=== PATIENT | female | born 1975 | race Caucasian/White ===

== ENCOUNTER 2017-07-21 12:02 | Emergency (ER) | payer BC, MEDICAID ==
[~2017-07-21] VITALS: Ht 152.4 cm; Wt 89.5 kg
[~2017-07-21 12:02] MED LIST: NORE1TAB6 PO
[2017-07-21] MEDS ORDERED: SUMAtriptan 5 mg Nasal Spray NS ONE (13:00)
[2017-07-21] MEDS ORDERED: LIDOcaine 4% (40 mg/ml) topical solution 50ml MM ONE (13:20)
[2017-07-21] MEDS ORDERED: SUMAtriptan succ. 6 MG/0.5ml vial SQ ONE ×2 (15:31→15:35)
[2017-07-21] MEDS ORDERED: BUTA-281 PO (15:40)
[2017-07-21 16:04] VITALS: BP 152/92
== END 2017-07-21 16:07 | disposition home or self-care (01) ==
LOC: ER 12:04
DX: R51 Headache (principal)
CPT/HCPCS: 96372; 99283; J3030

== ENCOUNTER 2017-07-27 08:32 | Outpatient (CLI) | payer BC ==
[~2017-07-27 08:32] MED LIST changes: +BUTA-281 PO
[2017-07-27] MEDS ORDERED: iohexol 300mg/ml 100ml inj. ONE (08:46)
== END 2017-07-27 23:59 | disposition home or self-care (01) ==
LOC: 64 CT 08:32
PROVIDERS: ATTEND Nurse Practitioner Family
DX: G51.0 Bell's palsy (principal); G43.909 Migraine, unspecified, not intractable, without status migrainosus
CPT/HCPCS: 70470; J7030; Q9967

== ENCOUNTER 2020-07-20 14:41 | Emergency (ER) | payer BC, OTHER ==
[~2020-07-20] VITALS: Ht 152.4 cm; Wt 89.4 kg
[~2020-07-20 14:41] MED LIST changes: +NORE-126 PO; -NORE1TAB6 PO
[2020-07-20 15:10] VITALS: BP 163/90
[2020-07-20] MEDS ORDERED: orphenadrine citrate 60mg/2ml inj. IM ONE (16:15)
[2020-07-20] MEDS ORDERED: ketorolac tromethamine 15mg/ml inj. IM ONE (16:15)
[2020-07-20] MEDS ORDERED: METH-360 PO (16:19)
== END 2020-07-20 17:16 | disposition home or self-care (01) ==
LOC: ER 14:41
DX: M25.511 Pain in right shoulder (principal); G56.01 Carpal tunnel syndrome, right upper limb; Z79.899 Other long term (current) drug therapy
CPT/HCPCS: 73030; 96372; 99284; J1885; J2360